=== PATIENT | female | born 1955 | race Caucasian/White ===

== ENCOUNTER 2017-07-12 18:51 | Emergency (ER) | payer SELFPAY ==
[~2017-07-12] VITALS: Ht 165.1 cm; Wt 113.4 kg
[2017-07-12] MEDS ORDERED: OMEPRAZOLE20 MG PO (21:42)
--- NOTE | 2017-07-13 20:59 | EKG ---
[facility] [address] [facility] [address] [place] [address] Signed Sinus bradycardia with sinus arrhythmia Left bundle branch block Abnormal ECG No previous ECGs available Confirmed by DEVIN GONSALEZ MD ([id number]) on 07/13/2017 8:59:37 PM Electronically Signed By: DEVIN GONSALEZ MD 07/13/179 PATIENT NAME: ESPERANZA WIGGINS Electrocardiogram DATE OF : 51 PHYSICIAN: DEVIN GONSALEZ MD REPORT #: [id number] REPORT IS CONFIDENTIAL AND NOT TO BE RELEASED WITHOUT AUTHORIZATION
== END 2017-07-12 21:55 | disposition home or self-care (01) ==
LOC: ED 18:51
DX: R10.13 Epigastric pain (principal)
CPT/HCPCS: 71020; 80053; 81001; 83690; 84484; 85025; 93005; 93010; 96374; 99284